=== PATIENT | female | born 1990 | race Caucasian/White ===

== ENCOUNTER 2017-06-04 17:05 | Emergency (ER) | payer OTHER ==
[2017-06-04] MEDS ORDERED: PROMETHAZINE HCL 25 MG TABLET PO ONE (18:19)
[2017-06-04] MEDS ORDERED: ACETAMINOPHEN 325 MG TABLET PO ONE (18:19)
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
[2017-06-04 19:03] VITALS: BP 127/77
== END 2017-06-04 19:02 | disposition home or self-care (01) ==
LOC: ER 17:05
DX: S06.0X0A Concussion without loss of consciousness, initial encounter (principal); R11.2 Nausea with vomiting, unspecified; M79.1 Myalgia; V89.2XXA Person injured in unspecified motor-vehicle accident, traffic, initial encounter
CPT/HCPCS: 99284; 70450; 72125; L0120